=== PATIENT | female | born 1980 | race Caucasian/White ===

== ENCOUNTER 2017-09-22 11:43 | Emergency (ER) | payer BC | END 2017-09-22 12:34 | disposition home or self-care (01) | LOC: MADERS 11:43 | DX: L25.9 Unspecified contact dermatitis, unspecified cause (principal); Z48.01 Encounter for change or removal of surgical wound dressing; I10 Essential (primary) hypertension; I48.91 Unspecified atrial fibrillation; E11.9 Type 2 diabetes mellitus without complications; Z79.4 Long term (current) use of insulin; F41.9 Anxiety disorder, unspecified; F32.9 Major depressive disorder, single episode, unspecified; Z79.82 Long term (current) use of aspirin; Z79.899 Other long term (current) drug therapy | CPT/HCPCS: 96372; J1040 ==

== ENCOUNTER 2017-11-07 16:58 | Emergency (ER) | payer BC ==
[2017-11-07] MEDS ORDERED: Dexamethasone 4 MG TAB ONE (17:40)
== END 2017-11-07 17:49 | disposition home or self-care (01) ==
LOC: MADERS 16:58
DX: L23.7 Allergic contact dermatitis due to plants, except food (principal); I10 Essential (primary) hypertension; I48.91 Unspecified atrial fibrillation; E11.9 Type 2 diabetes mellitus without complications; F41.9 Anxiety disorder, unspecified; F32.9 Major depressive disorder, single episode, unspecified; Z79.4 Long term (current) use of insulin; Z79.84 Long term (current) use of oral hypoglycemic drugs; Z79.82 Long term (current) use of aspirin; Z79.899 Other long term (current) drug therapy
CPT/HCPCS: 99282; J8540

== ENCOUNTER 2018-04-01 17:19 | Emergency (ER) | payer BC ==
[2018-04-01] MEDS ORDERED: Bacitracin Zinc 1 Packet ONE (17:33)
--- NOTE | 2018-04-01 18:14 | RAD ---
LEFT FOOT THREE VIEWS: Indications: Injury with pain. FINDINGS: Small enthesophyte from the plantar calcaneus. The tarsals are otherwise unremarkable. Metatarsals an d phalanges appear intact. IMPRESSION: No evidence of acute fracture. POS: [facility]
== END 2018-04-01 17:58 | disposition home or self-care (01) ==
LOC: MADERS 17:19
DX: S91.332A Puncture wound without foreign body, left foot, initial encounter (principal); I10 Essential (primary) hypertension; I48.91 Unspecified atrial fibrillation; E11.9 Type 2 diabetes mellitus without complications; F41.9 Anxiety disorder, unspecified; F32.9 Major depressive disorder, single episode, unspecified; Z79.899 Other long term (current) drug therapy; Z79.4 Long term (current) use of insulin; W22.8XXA Striking against or struck by other objects, initial encounter

== ENCOUNTER 2021-01-21 09:55 | Emergency (ER) | payer BC | END 2021-01-21 10:36 | disposition home or self-care (01) | LOC: MADERS 09:55 | DX: L23.7 Allergic contact dermatitis due to plants, except food (principal); I10 Essential (primary) hypertension; I48.91 Unspecified atrial fibrillation; E11.9 Type 2 diabetes mellitus without complications; E03.9 Hypothyroidism, unspecified; Z79.84 Long term (current) use of oral hypoglycemic drugs; Z79.4 Long term (current) use of insulin; Z79.899 Other long term (current) drug therapy | CPT/HCPCS: 99282 ==

== ENCOUNTER 2021-07-23 16:10 | Emergency (ER) | payer BC ==
[2021-07-23] MEDS ORDERED: diphenhydrAMINE 25 MG CAP ONE (17:23)
[2021-07-23] MEDS ORDERED: predniSONE 20 MG TAB ONE (17:23)
[2021-07-23] MEDS ORDERED: Famotidine 20 MG TAB ONE (17:23)
== END 2021-07-23 17:30 | disposition home or self-care (01) ==
LOC: MADERS 16:10
DX: L30.9 Dermatitis, unspecified (principal); I10 Essential (primary) hypertension; E11.9 Type 2 diabetes mellitus without complications; Z79.4 Long term (current) use of insulin
CPT/HCPCS: 99282; J7512

== ENCOUNTER 2021-08-18 19:44 | Emergency (ER) | payer BC ==
[2021-08-18] MEDS ORDERED: Ondansetron ODT 4 MG TAB ONE (21:18)
[2021-08-18] MEDS ORDERED: Meclizine HCl 25 MG TAB ONE (21:18)
== END 2021-08-18 22:40 | disposition home or self-care (01) ==
LOC: MADERS 19:44
DX: R42 Dizziness and giddiness (principal); R29.700 NIHSS score 0; I10 Essential (primary) hypertension; I48.91 Unspecified atrial fibrillation; E11.9 Type 2 diabetes mellitus without complications; E03.9 Hypothyroidism, unspecified; Z79.4 Long term (current) use of insulin; Z79.82 Long term (current) use of aspirin; Z79.84 Long term (current) use of oral hypoglycemic drugs; Z79.899 Other long term (current) drug therapy
CPT/HCPCS: 93005; Q0162

== ENCOUNTER 2021-12-17 15:58 | Emergency (ER) | payer BC | END 2021-12-17 16:43 | disposition home or self-care (01) | LOC: MADERS 15:58 | DX: R50.9 Fever, unspecified (principal); R05.9 Cough, unspecified; R52 Pain, unspecified; J02.9 Acute pharyngitis, unspecified; I10 Essential (primary) hypertension; E11.9 Type 2 diabetes mellitus without complications; I48.91 Unspecified atrial fibrillation; R61 Generalized hyperhidrosis; E03.9 Hypothyroidism, unspecified; Z20.822 Contact with and (suspected) exposure to COVID-19; Z79.4 Long term (current) use of insulin; Z79.82 Long term (current) use of aspirin; Z79.84 Long term (current) use of oral hypoglycemic drugs; Z79.899 Other long term (current) drug therapy | CPT/HCPCS: 99283; U0003; U0005 ==

== ENCOUNTER 2022-07-08 04:26 | Emergency (ER) | payer BC ==
[2022-07-08 05:00] LABS: Bilirubin Negative (Negative); Blood, Urine Negative (Negative); Clarity Clear (Clear); Glucose, Urine (Dipstick) >=1000 mg/dL (Negative); Ketone, Urine Negative (Negative); Leukocyte Negative (Negative); Nitrite Negative (Negative); Protein, Urine (Dipstick) Negative (Neg-Trace); Specific Gravity, Urine 1.015 (1.005-1.030); Urobilinogen 0.2 mg/dL (Less than 2)
[2022-07-08 05:01] LABS: Pregnancy Test - Urine (BHCG) Negative (Negative); Pregu Control Background? CLEAR/WHITE (CLR/WHITE); Pregu Control Bar Appear? YES (CONTROL BAR); Specific Gravity 1.015 (1.002-1.036)
[2022-07-08] MEDS ORDERED: Ketorolac Tromethamine 30 MG/ML VIAL ONE (05:33)
[2022-07-08] MEDS ORDERED: Dicyclomine 10 MG CAP ONE (05:33)
[2022-07-08] MEDS ORDERED: Lactated Ringer's 1,000 ML ONE ×2 (05:33→06:12)
[2022-07-08] MEDS ORDERED: Ondansetron PF 4 MG/2 ML Vial ONE (05:33)
[2022-07-08 05:41] LABS: #Basophils 0.2 thou/uL (0.0-0.2); #Eosinphils 0.1 thou/uL (0.0-0.7); #Lymphocytes 0.6 thou/uL (1.20-3.40); #Monocytes 0.6 thou/uL (0.11-0.59); #Neutrophils 7.2 thou/uL (1.40-6.50); %Basophils 2.7 % (0.0-1.0); %Eosinophils 1.7 % (0.0-10.0); %Lymphocytes 6.4 % (21.0-51.0); %Monocytes 6.3 % (0.0-10.0); %Neutrophils 82.9 % (42.0-75.0); Anisocytosis SLIGHT = 6-15 cells (100X) (0-5/hpf); Hemoglobin 12.4 g/dL (12.0-16.0); MDiff Complete? YES; Mean Corpuscular HGB CONC 31.8 g/dL (32.0-36.0); Mean Corpuscular Hemoglobin 23.4 pg (27.0-31.0); Mean Corpuscular Volume 73.6 fl (78.0-98.0); Mean Platelet Volume 6.3 fL (7.4-10.4); Microcytosis SLIGHT = 6-15 cells (100X) (0-5/hpf); Platelet Count 245 10x3/uL (130-400); Platelet Morphology Comment Appears Adequate; RBC Distribution Width 12.5 % (11.5-14.5); Stomatocytes SLIGHT = 2-5 cells (100X) (0-1/hpf); White Blood Cell (WBC) Count 8.7 10x3/uL (4.8-10.8)
[2022-07-08 05:46] LABS: ALT (SGPT) 12 U/L (8-55); AST (SGOT) 12 U/L (5-34); Albumin 4.1 g/dL (3.5-5.0); Alkaline Phosphatase 87 U/L (40-110); Anion Gap 15 mmol/L (10-20); BUN (Urea Nitrogen) 15 mg/dL (7.0-18.7); Bilirubin, Total 0.6 mg/dL (0.2-1.2); Calc. Creatinine Clearance 0 mL/min (70-130); Calcium 9.1 mg/dL (7.8-10.44); Carbon Dioxide 26 mmol/L (22-29); Chloride 97 mmol/L (98-107); Estimated GFR 77; Globulin 2.8 g/dL (2.4-3.5); Glucose 390 mg/dL (70-105); Lipase 15 U/L (8-78); Potassium 4.5 mmol/L (3.5-5.1); Protein, Total 6.9 g/dL (6.0-8.3); Sodium 133 mmol/L (136-145)
[2022-07-08] MEDS ORDERED: Acetaminophen 500 MG TAB ONE (06:12)
== END 2022-07-08 08:10 | disposition home or self-care (01) ==
LOC: MADERS 04:26
DX: R10.84 Generalized abdominal pain (principal); R11.2 Nausea with vomiting, unspecified; E11.65 Type 2 diabetes mellitus with hyperglycemia; I10 Essential (primary) hypertension; I48.91 Unspecified atrial fibrillation; E11.40 Type 2 diabetes mellitus with diabetic neuropathy, unspecified; E03.9 Hypothyroidism, unspecified; Z20.822 Contact with and (suspected) exposure to COVID-19; Z79.4 Long term (current) use of insulin; Z79.84 Long term (current) use of oral hypoglycemic drugs; Z79.899 Other long term (current) drug therapy
CPT/HCPCS: 36416; 80053; 81003; 81025; 83605; 83690; 85025; 87040; 87086; 87480; 87510; 87660; 87804; 94760; 96361; 96374; 96375; J1885; J2405; J7120; U0003; U0005

== ENCOUNTER 2022-11-10 21:39 | Emergency (ER) | payer OTHER, SELFPAY ==
[2022-11-10] MEDS ORDERED: Dexamethasone 10 MG/ML VIAL ONE (22:13)
== END 2022-11-10 22:25 | disposition home or self-care (01) ==
LOC: MADERS 21:39
DX: L23.7 Allergic contact dermatitis due to plants, except food (principal); I10 Essential (primary) hypertension; E11.9 Type 2 diabetes mellitus without complications; E03.9 Hypothyroidism, unspecified
CPT/HCPCS: 96372; 99282; J1100

== ENCOUNTER 2023-02-07 00:19 | Emergency (ER) | payer BC, OTHER ==
[2023-02-07] MEDS ORDERED: Dexamethasone 10 MG/ML VIAL ONE (00:52)
== END 2023-02-07 00:57 | disposition home or self-care (01) ==
LOC: MADERS 00:19
DX: L23.7 Allergic contact dermatitis due to plants, except food (principal); I10 Essential (primary) hypertension; E11.9 Type 2 diabetes mellitus without complications; Z79.4 Long term (current) use of insulin
CPT/HCPCS: 96372; 99282; J1100

== ENCOUNTER 2023-03-16 15:59 | Emergency (ER) | payer OTHER, SELFPAY ==
[2023-03-16] MEDS ORDERED: Lactated Ringer's 1,000 ML ONE ×3 (17:11→19:06)
[2023-03-16 17:41] LABS: #Basophils 0.1 thou/uL (0.0-0.2); #Eosinphils 0.1 thou/uL (0.0-0.7); #Lymphocytes 1.6 thou/uL (1.20-3.40); #Monocytes 0.4 thou/uL (0.11-0.59); %Basophils 1.1 % (0.0-1.0); %Eosinophils 1.4 % (0.0-10.0); %Lymphocytes 21.8 % (21.0-51.0); %Neutrophils 69.7 % (42.0-75.0); Anisocytosis SLIGHT = 6-15 cells (100X) (0-5/hpf); Hematocrit 31.7 % (36.0-47.0); Hemoglobin 8.8 g/dL (12.0-16.0); Hypochromia SLIGHT = 6-15 cells (100X) (0-5/hpf); MDiff Complete? YES; Mean Corpuscular HGB CONC 27.8 g/dL (32.0-36.0); Mean Corpuscular Hemoglobin 19.2 pg (27.0-31.0); Mean Platelet Volume 7.8 fL (7.4-10.4); Microcytosis SLIGHT = 6-15 cells (100X) (0-5/hpf); Platelet Count 317 10x3/uL (130-400); Polychromasia MODERATE = 3-4 cells (100X) (0-2/hpf); RBC Distribution Width 16.2 % (11.5-14.5); Red Blood Cell (RBC) Count 4.59 mill/uL (4.20-5.40); White Blood Cell (WBC) Count 7.1 10x3/uL (4.8-10.8)
[2023-03-16 17:44] LABS: ALT (SGPT) 13 U/L (8-55); AST (SGOT) 13 U/L (5-34); Albumin 4.1 g/dL (3.5-5.0); Alkaline Phosphatase 92 U/L (40-110); Anion Gap 21 mmol/L (10-20); BUN (Urea Nitrogen) 9 mg/dL (7.0-18.7); Base Excess-Venous -8.1 mmol/L (-2.0 to 3.0); Bicarbonate (HCO3v) 18.1 mmol/L (22.0-28.0); Bilirubin, Total 0.5 mg/dL (0.2-1.2); CO2 Tension (PvCO2) 38.7 mmHg (42.0-51.0); Calc. Creatinine Clearance 0 mL/min (70-130); Calcium 9.3 mg/dL (7.8-10.44); Calcium, Ionized 1.21 mmol/L (1.15-1.33); Carbon Dioxide 15 mmol/L (22-29); Chloride 96 mmol/L (98-107); Chloride 97 mmol/L (98-107); Estimated GFR 63; Globulin 3.5 g/dL (2.4-3.5); Hemoglobin - Calc 12.5 g/dL (12.0-16.0); Potassium 4.2 mmol/L (3.5-5.1); Potassium 4.3 mmol/L (3.5-5.1); Protein, Total 7.6 g/dL (6.0-8.3); Sodium 128 mmol/L (136-145); Sodium 130 mmol/L (138-145); T. Carbon Dioxide 19.3 mmol/L (22.0-28.0); vO2 Saturation-calc 96.8 % (60.0-85.0)
[2023-03-16 17:45] LABS: Glucose 624 mg/dL (70-105)
[2023-03-16] MEDS ORDERED: Insulin Regular 300 UNITS/3 ML VIAL ONE ×2 (17:55→19:06)
[2023-03-16 18:11] LABS: Bilirubin Negative (Negative); Blood, Urine Small (Negative); Glucose, Urine (Dipstick) >=1000 mg/dL (Negative); Ketone, Urine Trace mg/dL (Negative); Leukocyte Negative (Negative); Nitrite Negative (Negative); Protein, Urine (Dipstick) Negative (Neg-Trace); Urobilinogen 0.2 mg/dL (Less than 2); pH, Urine 5.5 (5.0-9.0)
[2023-03-16 18:18] LABS: Clarity Slightly Cloudy (Clear); Specific Gravity, Urine 1.034 (1.002-1.036)
[2023-03-16 18:21] LABS: Bacteria/HPF Rare-Few HPF (None Seen); CAUTI Indications for Culture Dysuria,urgency,freq; RBC/HPF None Seen HPF (0-3); Urine Culture Reflex No No; WBC/HPF 0-3 HPF (0-3); Yeast-Budding 2+ HPF (None Seen)
[2023-03-16] MEDS ORDERED: Sodium Chloride 0.9% 100 ML ONE (19:06)
[2023-03-16 19:19] LABS: Anion Gap 18 mmol/L (10-20); BUN (Urea Nitrogen) 8 mg/dL (7.0-18.7); Calc. Creatinine Clearance 0 mL/min (70-130); Calcium 9.1 mg/dL (7.8-10.44); Carbon Dioxide 20 mmol/L (22-29); Chloride 99 mmol/L (98-107); Estimated GFR 89; Potassium 4.4 mmol/L (3.5-5.1); Sodium 133 mmol/L (136-145)
[2023-03-16 19:20] LABS: Glucose 401 mg/dL (70-105)
[2023-03-16] MEDS ORDERED: Dextrose 5 %-0.45 % NaCl 1,000 ML ONE (21:30)
[2023-03-16] MEDS ORDERED: Potassium Chloride 20 MEQ/100 ML PREMIX BAG ONE (21:30)
== END 2023-03-16 21:52 | disposition short-term general hospital (02) ==
LOC: MADERS 15:59
DX: E11.10 Type 2 diabetes mellitus with ketoacidosis without coma (principal); I10 Essential (primary) hypertension; Z79.84 Long term (current) use of oral hypoglycemic drugs; E03.9 Hypothyroidism, unspecified; E78.5 Hyperlipidemia, unspecified; Z79.899 Other long term (current) drug therapy; Z79.82 Long term (current) use of aspirin; Z79.4 Long term (current) use of insulin
CPT/HCPCS: 36415; 80053; 81001; 82010; 82330; 82803; 85025; 96361; 96374; 96376; J1815; J3480; J7042; J7120

== ENCOUNTER 2023-06-05 18:33 | Emergency (ER) | payer BC, OTHER, SELFPAY ==
[2023-06-05] MEDS ORDERED: Acetaminophen 500 MG TAB ONE (18:52)
[2023-06-05] MEDS ORDERED: Ibuprofen 800 MG TAB ONE (18:52)
[2023-06-05] MEDS ORDERED: Oseltamivir 75 MG CAP ONE (19:24)
[2023-06-05 20:02] LABS: Pregnancy Test - Urine (BHCG) Negative (Negative); Pregu Control Background? CLEAR/WHITE (CLR/WHITE); Pregu Control Bar Appear? YES (CONTROL BAR); Specific Gravity 1.028 (1.002-1.036)
== END 2023-06-05 20:25 | disposition home or self-care (01) ==
LOC: MADERS 18:33
DX: J10.1 Influenza due to other identified influenza virus with other respiratory manifestations (principal); E11.9 Type 2 diabetes mellitus without complications; I10 Essential (primary) hypertension; E78.5 Hyperlipidemia, unspecified; I48.91 Unspecified atrial fibrillation; E03.9 Hypothyroidism, unspecified; Z79.899 Other long term (current) drug therapy; Z79.82 Long term (current) use of aspirin; Z79.84 Long term (current) use of oral hypoglycemic drugs; Z79.4 Long term (current) use of insulin
CPT/HCPCS: 71046; 81025; 87635; 87804; 94760; 99284

== ENCOUNTER 2023-12-19 12:36 | Emergency (ER) | payer OTHER, SELFPAY ==
[2023-12-19 14:57] LABS: Bilirubin Negative (Negative); Blood, Urine Negative (Negative); Glucose, Urine (Dipstick) >=1000 mg/dL (Negative); Ketone, Urine Negative (Negative); Leukocyte Negative (Negative); Nitrite Negative (Negative); Pregnancy Test - Urine (BHCG) Negative (Negative); Protein, Urine (Dipstick) Negative (Neg-Trace); Specific Gravity, Urine 1.015 (1.005-1.030); Urobilinogen 0.2 mg/dL (Less than 2); pH, Urine 5.5 (5.0-9.0)
[2023-12-19 14:58] LABS: Pregu Control Background? CLEAR/WHITE (CLR/WHITE); Pregu Control Bar Appear? YES (CONTROL BAR); Specific Gravity 1.031 (1.002-1.036)
[2023-12-19 15:03] LABS: Bacteria/HPF Rare-Few HPF (None Seen); CAUTI Indications for Culture Fever or rigors; Clarity Hazy (Clear); RBC/HPF 0-3 HPF (0-3); Squamous Epithelial 0-3 HPF (0-3); WBC/HPF None Seen HPF (0-3)
[2023-12-19 15:04] LABS: Urine Culture Reflex No No
== END 2023-12-19 15:09 | disposition home or self-care (01) ==
LOC: MADERS 12:36
DX: L30.4 Erythema intertrigo (principal); B37.2 Candidiasis of skin and nail; I10 Essential (primary) hypertension; E11.9 Type 2 diabetes mellitus without complications
CPT/HCPCS: 81001; 81025; 99283

== ENCOUNTER 2024-02-20 21:27 | Emergency (ER) | payer OTHER ==
[2024-02-20 21:57] LABS: Bilirubin Negative (Negative); Blood, Urine Moderate (Negative); CAUTI Indications for Culture Pelvic or flank pain; Clarity Hazy (Clear); Glucose, Urine (Dipstick) 500 mg/dL (Negative); Ketone, Urine Negative (Negative); Leukocyte Negative (Negative); Nitrite Negative (Negative); Pregnancy Test - Urine (BHCG) Negative (Negative); Pregu Control Background? CLEAR/WHITE (CLR/WHITE); Pregu Control Bar Appear? YES (CONTROL BAR); Protein, Urine (Dipstick) Negative (Neg-Trace); RBC/HPF Greater than 50 HPF (0-3); Specific Gravity 1.015 (1.002-1.036); Specific Gravity, Urine 1.015 (1.005-1.030); Urobilinogen 0.2 mg/dL (Less than 2); WBC/HPF 0-3 HPF (0-3); pH, Urine 5.5 (5.0-9.0)
[2024-02-20 21:58] LABS: Urine Culture Reflex No No
[2024-02-20 22:21] LABS: #Basophils 0.1 thou/uL (0.0-0.2); #Eosinophils 0.3 thou/uL (0.0-0.7); #Lymphocytes 1.9 thou/uL (1.20-3.40); #Monocytes 0.4 thou/uL (0.11-0.59); #Neutrophils 3.3 thou/uL (1.40-6.50); %Basophils 1.7 % (0.0-1.0); %Lymphocytes 31.2 % (21.0-51.0); %Monocytes 6.8 % (0.0-10.0); %Neutrophils 55.3 % (42.0-75.0); Anisocytosis SLIGHT = 6-15 cells (100X) (0-5/hpf); Hematocrit 27.3 % (36.0-47.0); Hemoglobin 7.8 g/dL (12.0-16.0); Hypochromia SLIGHT = 6-15 cells (100X) (0-5/hpf); MDiff Complete? YES; Mean Corpuscular HGB CONC 28.8 g/dL (32.0-36.0); Mean Corpuscular Hemoglobin 18.9 pg (27.0-31.0); Mean Corpuscular Volume 65.8 fl (78.0-98.0); Mean Platelet Volume 7.5 fL (7.4-10.4); Microcytosis SLIGHT = 6-15 cells (100X) (0-5/hpf); Ovalocytes SLIGHT = 2-5 cells (100X) (0-1/hpf); Platelet Adequacy Comment Appears Adequate; Platelet Count 329 10x3/uL (130-400); Polychromasia SLIGHT = 2-3 cells (100X) (0-2/hpf); RBC Distribution Width 16.6 % (11.5-14.5); Red Blood Cell (RBC) Count 4.15 mill/uL (4.20-5.40); Tear Drops SLIGHT = 2-5 cells (100X) (0-1/hpf)
[2024-02-20 22:39] LABS: ALT (SGPT) 16 U/L (8-55); AST (SGOT) 13 U/L (5-34); Albumin 3.8 g/dL (3.5-5.0); Alkaline Phosphatase 96 U/L (40-110); Anion Gap 11 mmol/L (10-20); BUN (Urea Nitrogen) 14 mg/dL (7.0-18.7); Bilirubin, Total 0.4 mg/dL (0.2-1.2); Calc. Creatinine Clearance 0 mL/min (70-130); Calcium 9.2 mg/dL (7.8-10.44); Carbon Dioxide 26 mmol/L (22-29); Chloride 99 mmol/L (98-107); Estimated GFR 72; Globulin 3.2 g/dL (2.4-3.5); Lipase 44 U/L (8-78); Potassium 4.2 mmol/L (3.5-5.1); Sodium 132 mmol/L (136-145)
[2024-02-20] MEDS ORDERED: Ketorolac Tromethamine 30 MG (1 mL) VIAL ONE (22:39)
[2024-02-20 22:40] LABS: Critical Call Chemistry NUR.AID @ 2239; Glucose 415 mg/dL (70-105)
[2024-02-20] MEDS ORDERED: Insulin Regular, Human 100 UNIT/ML 10 ML VIAL ONE (22:52)
[2024-02-20] MEDS ORDERED: Lidocaine 4% Patch ONE (22:52)
== END 2024-02-20 23:05 | disposition home or self-care (01) ==
LOC: MADERS 21:27
DX: E11.65 Type 2 diabetes mellitus with hyperglycemia (principal); R16.0 Hepatomegaly, not elsewhere classified; D50.9 Iron deficiency anemia, unspecified; R31.29 Other microscopic hematuria; R10.9 Unspecified abdominal pain; N28.89 Other specified disorders of kidney and ureter; D25.9 Leiomyoma of uterus, unspecified; I10 Essential (primary) hypertension; E03.9 Hypothyroidism, unspecified; E78.5 Hyperlipidemia, unspecified; Z79.899 Other long term (current) drug therapy; Z79.84 Long term (current) use of oral hypoglycemic drugs
CPT/HCPCS: 36416; 74176; 80053; 81001; 81025; 83690; 85025; 96372; 36415-59; J1815; J1885

== ENCOUNTER 2024-05-29 13:37 | Emergency (ER) | payer OTHER ==
[2024-05-29] MEDS ORDERED: Ibuprofen 600 MG TAB ONE (14:04)
[2024-05-29] MEDS ORDERED: Acetaminophen 500 MG TAB ONE (14:05)
== END 2024-05-29 14:41 | disposition home or self-care (01) ==
LOC: MADERS 13:37
DX: J10.1 Influenza due to other identified influenza virus with other respiratory manifestations (principal); E11.9 Type 2 diabetes mellitus without complications; I10 Essential (primary) hypertension; Z79.4 Long term (current) use of insulin
CPT/HCPCS: 71046; 87081; 87428; 87430

== ENCOUNTER 2024-07-11 18:54 | Emergency (ER) | payer OTHER ==
[2024-07-11] MEDS ORDERED: Lidocaine 1% PF 5 ML VIAL ONE (19:04)
[2024-07-11] MEDS ORDERED: Bacitracin 1 PK ONE (20:07)
== END 2024-07-11 21:06 | disposition home or self-care (01) ==
LOC: MADERS 18:54
DX: S61.212A Laceration without foreign body of right middle finger without damage to nail, initial encounter (principal); S60.410A Abrasion of right index finger, initial encounter; S60.414A Abrasion of right ring finger, initial encounter; I10 Essential (primary) hypertension; E11.9 Type 2 diabetes mellitus without complications; I48.91 Unspecified atrial fibrillation; W26.8XXA Contact with other sharp object(s), not elsewhere classified, initial encounter; Y93.89 Activity, other specified; Y92.69 Other specified industrial and construction area as the place of occurrence of the external cause; Z79.4 Long term (current) use of insulin
CPT/HCPCS: 12041